=== PATIENT | female | born 1975 | race Caucasian/White ===

== ENCOUNTER 2019-10-28 05:54 | Day surgery (SDC) | payer OTHER ==
[2019-10-28] MEDS ORDERED: Midazolam 1 MG/ML 2 ML SDV IV ONE ×3 (05:55→07:07)
[2019-10-28] MEDS ORDERED: fentaNYL 100 MCG/2 ML SDV IV ONE ×3 (05:55→07:06)
[2019-10-28] MEDS ORDERED: Midazolam 1 MG/ML 2 ML SDV ONE (06:35)
[2019-10-28] MEDS ORDERED: fentaNYL 100 MCG/2 ML SDV ONE (06:36)
[2019-10-28] MEDS ORDERED: Dextrose 5%-0.45% NaCl 1,000 ML IV SCH (06:45)
--- NOTE | 2019-10-28 08:48 | OR ---
DATE: 10/28/2019 PROCEDURES: Esophagogastroduodenoscopy and multiple pinch biopsies. INSTRUMENT USED: [id number] Olympus video panendoscope. PREMEDICATIONS: No oral or topical anesthesia used. Fentanyl 100 mcg intravenous, Versed 2 mg intravenous, nasal O2 cannula. The procedure was done under pulse oximetry, BP recording, and lunchroom monitor. INDICATION: The patient with persistent abdominal pain and chronic diarrhea, unexplained and not responsive to medical measures on H2RA. Esophagogastroduodenoscopy is performed for detection of any active erosive lesions, Regalado esophagus, and/or malignancy also under consideration, H. pylori status to be determined, small bowel biopsies to be obtained for celiac disease if indicated, endoscopic hemostasis therapy if needed. PROCEDURE IN DETAIL: The scope was passed with ease. Adequate visualization of the esophagus was made from proximal to distal areas. No upper esophageal lesions identified. No distal esophageal stricture. No uphill or downhill esophageal varices. No Verenice-Marroquin tear. No evidence of erosive esophagitis by Stephens criteria. No esophageal polyp or tumor mass identified. Z-line was seen at around 39 cm distal to the oral verge, configuration consistent with grade 1 by ZAP classification. No proximal gastric varices noted. Gastric fundus examination by retroflexion showed no malignant lesions, no gastric ulcer, malignant mass, or vascular ectasia identified. Scattered gastric antral erosions were noted without bleeding from them. Duodenal bulb showed no ulcer. Visualized second part of the duodenum was unremarkable. Multiple pinch biopsies, 4 in number, were taken from different areas of the second part of the duodenum and tissues were also obtained from the duodenal bulb at 9 and 12 o'clock positions and sent for any histopathologic evidence of celiac disease. Multiple pinch biopsies were also obtained from the gastric antrum and proximal body and sent for PyloriTek test for H pylori and histopathology. No bleeding was noted from any of the visualized areas at the completion of examination. IMPRESSION: Gastric antral erosions. The patient tolerated the procedure well. [facility] /[id number]
[2019-10-28 09:25] VITALS: BP 137/89; PULSE 87
== END 2019-10-28 09:25 | disposition home or self-care (01) ==
LOC: DL.ENDO 05:54
PROVIDERS: ATTEND Internal Medicine Gastroenterology
DX: K25.9 Gastric ulcer, unspecified as acute or chronic, without hemorrhage or perforation (principal); K52.9 Noninfective gastroenteritis and colitis, unspecified; E66.09 Other obesity due to excess calories; F41.1 Generalized anxiety disorder; Z98.890 Other specified postprocedural states; Z90.49 Acquired absence of other specified parts of digestive tract; Z87.828 Personal history of other (healed) physical injury and trauma; Z86.39 Personal history of other endocrine, nutritional and metabolic disease; Z68.34 Body mass index [BMI] 34.0-34.9, adult
CPT/HCPCS: 43239; 87077; J2250; J3010; J7042

== ENCOUNTER 2019-10-29 10:35 | Emergency (ER) | payer OTHER ==
[2019-10-29 11:16] VITALS: BP 153/99; PULSE 98
--- NOTE | 2019-10-29 11:29 | EDM.PDOC ---
ED HPI GENERAL MEDICAL PROBLEM - General Chief Complaint: Chest Pain Stated Complaint: SIDE EFFECTS FROM PROCEDURE YEST. Time Seen by Provider: 10/29/19 11:15 Source of Information: Reports: Patient History Limitations: Reports: No Limitations - History of Present Illness INITIAL COMMENTS - FREE TEXT/NARRATIVE: This 44 yo female patient reports to the ED with chest pain (heaviness) that started last night. The patient reports she had an EGD done yesterday by Dr. Knight. The patient reports her heaviness started during the evening. The patient did call and talk to a nurse at the hospital and was told to take Tums. The patient reports no symptom improvement with Tums. This morning the patient called Dr. Knight's office and was advised to come to the ED for further evalu ation and management. The patient reports her pain is still present in her chest (describes it as heaviness like someone is sitting on her chest). The patient reports she was advised that the EGD demonstrated ulcers and she is supposed to start a different medication today for her ulcers. 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(s) (Tums) Anterior Chest Pain Score (Numeric/FACES): 6 - Related Data Allergies Allergy/AdvReac Type Severity Reaction Status Date / Time No Known Allergies Allergy Verified 10/29/19 11:33 Home Meds: Home Meds Venlafaxine HCl [Venlafaxine ER] 25 mg PO DAILY 09/08/13 [History] hydrOXYzine HCL [Hydroxyzine HCl] 25 mg PO Q8HR PRN 10/28/19 [History] Omeprazole 20 mg PO DAILY 10/29/19 [History] Past Medical History HEENT History: Reports: Impaired Vision Cardiovascular History: Reports: Other (See Below) Other Cardiovascular History: HX OF TACHYCARDIA Respiratory History: Reports: None Gastrointestinal History: Reports: Chronic Constipation, Chronic Diarrhea, GERD Genitourinary History: Reports: Other (See Below) Other Genitourinary History: SOME KIDNEY ISSUES 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: Neurological History: Reports: Concussion, Migraines Other Neuro History: SEVERE CONCUSSION IN ELEMENTARY SCHOOL Psychiatric History: Reports: Anxiety, Panic Attack, Other (See Below) Other Psychiatric History: NIGHT TERRORS Endocrine/Metabolic History: Reports: None Hematologic History: Reports: None Immunologic History: Reports: None Oncologic (Cancer) History: Reports: None Dermatologic History: Reports: Other (See Below) Other Dermatologic History: SKIN BIOPSIES ON BACK; SHE STATES 1 MARKER FROM CANCER - Infectious Disease History Infectious Disease History: Reports: Chicken Pox - Past Surgical History Neurological Surgical History: Social & Family History - Family History Family Medical History: Noncontributory - Caffeine Use Caffeine Use: Reports: Soda - Sexual History Sexual History: Reports: Sexually Active - Living Situation & Occupation Living situation: Reports: , with Family Occupation: Employed ED ROS GENERAL - Review of Systems Review Of Systems: Comprehensive ROS is negative, except as noted in HPI. ED EXAM, GENERAL - Physical Exam Exam: See Below Exam Limited By: No Limitations General Appearance: Alert, WD/WN, Moderate Distress Eye Exam: Bilateral Eye: EOMI, Normal Inspection, PERRL Ears: Normal External Exam, Normal Canal, Hearing Grossly Normal, Normal TMs Nose: Normal Inspection, Normal Mucosa, No Blood Throat/Mouth: Normal Inspection, Normal Lips, Normal Teeth, Normal Gums, Normal Oropharynx, Normal Voice, No Airway Compromise Head: Atraumatic, Normocephalic Neck: Normal Inspection Respiratory/Chest: No Respiratory Distress, Lungs Clear, Normal Breath Sounds, No Accessory Muscle Use, Chest Non-Tender Cardiovascular: Normal Peripheral Pulses, Regular Rate, Rhythm, No Edema, No Gallop, No JVD, No Murmur, No Rub GI/Abdominal: Tender (diffuse) (Female) Exam: Deferred Rectal (Female) Exam: Deferred Back Exam: Normal Inspection, Full Range of Motion, NT Extremities: Normal Inspection, Normal Range of Motion, Non-Tender, Normal Capillary Refill, No Pedal Edema Neurological: Alert, Oriented, CN II-XII Intact, Normal Cognition, Normal Gait, Normal Reflexes, No Motor/Sensory Deficits Psychiatric: Normal Affect, Normal Mood Skin Exam: Warm, Dry, Intact, Normal Color, No Rash Lymphatic: No Adenopathy Course - Vital Signs Last Recorded V/S: Last Vital Signs Temp 36.3 C 10/29/19 10:58 Pulse 98 10/29/19 10:58 Resp 16 10/29/19 10:58 BP 153/99 H 10/29/19 10:58 Pulse Ox 98 10/29/19 10:58 - Orders/Labs/Meds Orders: Active Orders 24 hr Category Date Time Status EKG Documentation Completion [RC] STAT Care 10/29/19 11:17 Ordered Labs: Laboratory Tests 10/29/19 10/29/19 Range/Units 11:03 11:03 WBC 6.6 (5.0-10.0) 10^3/uL RBC 4.51 (4.2-5.4) 10^6/uL Hgb 14.8 D (12.0-16.0) g/dL Hct 42.9 (37.0-47.0) % MCV 95.1 D (80-100) fL MCH 32.8 (27.0-34.0) pg MCHC 34.5 (33.0-35.0) g/dL Plt Count 363 (150-450) 10^3/uL Neut % (Auto) 61.6 (42.2-75.2) % Lymph % (Auto) 26.0 (20.5-50.1) % [place] % (Auto) 9.4 H (2-8) % Eos % (Auto) 2.4 (1.0-3.0) % Baso % (Auto) 0.6 (0.0-1.0) % Sodium 140 (136-145) mmol/L Potassium 3.8 (3.5-5.1) mmol/L Chloride 103 (98-107) mmol/L Carbon Dioxide 27 (21-32) mmol/L Anion Gap 13.8 H (7-13) mEq/L BUN 7 (7-18) mg/dL Creatinine 0.87 (0.55-1.02) mg/dL Est Cr Clr Drug Dosing 69.68 mL/min Estimated GFR (MDRD) > 60 BUN/Creatinine Ratio 8.0 (No establ ref range) Glucose 106 H (74-99) mg/dL Calcium 9.0 (8.5-10.1) mg/dL Total Bilirubin 0.6 (0.2-1.0) mg/dL AST 46 H (15-37) U/L ALT 52 (14-59) U/L Alkaline Phosphatase 92 (46-116) U/L Troponin I < 0.017 (0.000-0.056) ng/mL Total Protein 7.2 (6.4-8.2) g/dL Albumin 3.5 (3.4-5.0) g/dL Globulin 3.7 Albumin/Globulin Ratio 0.9 Meds: Medications Discontinued Medications Generic Name Dose Route Start Last Admin Trade Name Opal PRN Reason Stop Dose Admin Al Hydroxide/Mg Hydroxide 30 ml 10/29/19 11:58 10/29/19 12:08 Gi Cocktail PO 10/29/19 11:59 30 ml ONETIME ONE Administration Departure - Departure Time of Disposition: 12:34 Disposition: Home, Self-Care 01 Condition: Fair Clinical Impression: GERD (gastroesophageal reflux disease) Qualifiers: Esophagitis presence: with esophagitis Qualified Code(s): K21.0 - Gastro- esophageal reflux disease with esophagitis Instructions: Nonspecific Chest Pain, Adult, [id number], Gastroesophageal Reflux Disease, Adult, [id number] Forms: ED Department Discharge Care Plan Goals: The patient was advised of the examination, lab, x-ray and EKG results during the visit. The patient was given a GI Cocktail while in the ED. The patient was encouraged to take her Omeprazole as directed. If the patient has any additional symptoms or concerns, the patient should follow-up with her primary care facility or return to the emergency department. Sepsis Event Note (ED) - Evaluation Sepsis Screening Result: No Definite Risk - Focused Exam Vital Signs: Vital Signs Temp Pulse Resp BP Pulse Ox 10/29/19 10:58 36.3 C 98 16 153/99 H 98 - My Orders Last 24 Hours: My Active Orders 10/29/19 11:17 EKG Documentation Completion [RC] STAT - Assessment/Plan Last 24 Hours: My Active Orders 10/29/19 11:17 EKG Documentation Completion [RC] STAT
[2019-10-29 11:34] LABS: ANION GAP 13.8 mEq/L (7-13); CHLORIDE,CL 103 mmol/L (98-107); SODIUM,NA 140 mmol/L (136-145)
--- NOTE | 2019-10-29 11:56 | CR ---
EXAMINATION: Chest 1V Frontal SEX: Female AGE: 44 years CLINICAL HISTORY: 44-year-old female experiencing chest pain. INTERPRETATION: Negative exam. (Reasonable inspiratory effort obese female) 1. Normal cardiac silhouette and pulmonary vascularity. Left-sided aortic arch. 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 No pulmonary vascular congestion, cephalization of flow, alveolar edema or dependent pleural effusion. 3. No lung mass, hilar lymphadenopathy or focal lobar pneumonia. 4. No atelectasis/collapse. Gary thorax unremarkable (AP film) 5. No pneumothorax or pneumomediastinum. Normal midline tracheal bronchial airway. No free subdiaphragmatic air.
[2019-10-29] MEDS ORDERED: GI Cocktail Oral Solution 30 ML PO ONE (11:58)
== END 2019-10-29 12:40 | disposition home or self-care (01) ==
LOC: DL.ED 10:35
DX: K21.0 Gastro-esophageal reflux disease with esophagitis (principal); F41.0 Panic disorder [episodic paroxysmal anxiety]; G43.909 Migraine, unspecified, not intractable, without status migrainosus; Z79.899 Other long term (current) drug therapy
CPT/HCPCS: 36415; 71045; 80053; 84484; 85025; 93005; 99285; A9270

== ENCOUNTER 2020-01-26 18:31 | Emergency (ER) | payer OTHER ==
[2020-01-26] MEDS ORDERED: Promethazine 25 MG Tab PO ONE (18:32)
[2020-01-26] MEDS ORDERED: Acetaminophen/HYDROcodone 325-10 MG Tab PO ONE ×2 (18:32→20:39)
[2020-01-26 19:27] VITALS: BP 138/89; PULSE 105
--- NOTE | 2020-01-26 21:56 | CR ---
PROCEDURE INFORMATION: Exam: XR Chest, 1 View Exam date and time: 01/26/2020 9:44 PM Age: 44 years old Clinical indication: Other: Positive for covid; Additional info: SOB TECHNIQUE: Imaging protocol: XR of the chest Views: 1 view. COMPARISON: CR Chest 1V Frontal 10/29/2019 11:29 AM FINDINGS: Lungs: Unremarkable. No consolidation. Pleural space: Unremarkable. No pleural effusion. No pneumothorax. Heart/Mediastinum: Unremarkable. No cardiomegaly. Bones/joints: Unremarkable. IMPRESSION: No acute findings.
[2020-01-26 22:02] LABS: ANION GAP 12.2 mEq/L (7-13); CHLORIDE,CL 102 mmol/L (98-107); SODIUM,NA 139 mmol/L (136-145)
[2020-01-26] MEDS ORDERED: Acetaminophen/HYDROcodone 325-10 MG Tab ONE (22:20)
[2020-01-26] MEDS ORDERED: Promethazine 25 MG Tab ONE (22:20)
--- NOTE | 2020-01-26 22:23 | EDM.PDOC ---
ED HPI GENERAL MEDICAL PROBLEM - General Chief Complaint: Headache Stated Complaint: COVID SYMTOMS, TEMP 98.6* Time Seen by Provider: 01/26/20 19:25 Source of Information: Reports: Patient History Limitations: Reports: No Limitations - History of Present Illness INITIAL COMMENTS - FREE TEXT/NARRATIVE: ED with c/o headache fever, congestion loss of taste poor appetite, no nausea or vomiting. No diarrhea. Generalized aching. Fever earlier today 100.2 came down with Tylenol No known exposure. Headache Pain Score (Numeric/FACES): 8 - Related Data Allergies Allergy/AdvReac Type Severity Reaction Status Date / Time No Known Allergies Allergy Verified 01/26/20 19:42 Home Meds: Home Meds Omeprazole 20 mg PO DAILY 10/29/19 [History] Escitalopram Oxalate [Lexapro] 10 mg PO DAILY 01/26/20 [History] Past Medical History HEENT History: Reports: Impaired Vision Cardiovascular History: Reports: Other (See Below) Other Cardiovascular History: HX OF TACHYCARDIA Respiratory History: Reports: Pneumonia, Recurrent Gastrointestinal History: Reports: Chronic Constipation, Chronic Diarrhea, GERD, Other (See Below) Other Gastrointestinal History: ulcer Genitourinary History: Reports: Other (See Below) Other Genitourinary History: SOME KIDNEY ISSUES 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: Neurological History: Reports: Concussion, Migraines Other Neuro History: SEVERE CONCUSSION IN ELEMENTARY SCHOOL Psychiatric History: Reports: Anxiety, Panic Attack, Other (See Below) Other Psychiatric History: NIGHT TERRORS Endocrine/Metabolic History: Reports: None Hematologic History: Reports: None Immunologic History: Reports: None Oncologic (Cancer) History: Reports: None Dermatologic History: Reports: Other (See Below) Other Dermatologic History: SKIN BIOPSIES ON BACK; SHE STATES 1 MARKER FROM CANCER - Infectious Disease History Infectious Disease History: Reports: Chicken Pox - Past Surgical History GI Surgical History: Reports: Cholecystectomy Musculoskeletal Surgical History: Reports: Shoulder Surgery Other Musculoskeletal Surgeries/Procedures:: SPONDYTHOLITHESIS (FROM ) Social & Family History - Family History Family Medical History: Noncontributory - Tobacco Use Smoking Status *Q: Never Smoker Second Hand Smoke Exposure: No - Caffeine Use Caffeine Use: Reports: None Caffeine Use Comment: state she has now stopped caffiene after EGD yesterday - Recreational Drug Use Recreational Drug Use: No - Sexual History Sexual History: Reports: Sexually Active - Living Situation & Occupation Living situation: Reports: , with Family Occupation: Employed ED ROS GENERAL - Review of Systems Review Of Systems: Comprehensive ROS is negative, except as noted in HPI. - Physical Exam Exam: See Below Exam Limited By: No Limitations General Appearance: Alert, Mild Distress Eye Exam: Bilateral Eye: EOMI Ears: Normal External Exam, Normal TMs Nose: Normal Inspection Throat/Mouth: Normal Inspection Head Exam: Atraumatic, Normocephalic Neck: Normal Inspection Respiratory/Chest: No Respiratory Distress, Lungs Clear, Normal Breath Sounds Cardiovascular: Normal Peripheral Pulses, Regular Rate, Rhythm GI/Abdominal: Normal Bowel Sounds, Soft, Non-Tender Neuro Exam (Abbreviated): Alert, Oriented, Normal Cognition Back Exam: Normal Inspection Extremities: Normal Inspection Psychiatric: Anxious Skin Exam: Warm, Dry, Intact, Normal Color Course - Vital Signs Last Recorded V/S: Last Vital Signs Temp 100.7 F H 01/26/20 20:59 Pulse 105 H 01/26/20 19:25 Resp 18 01/26/20 19:25 BP 138/89 01/26/20 19:25 Pulse Ox 98 01/26/20 19:25 - Orders/Labs/Meds Orders: Active Orders 24 hr Category Date Time Status CULTURE STREP A CONFIRMATION [RM] Stat Lab 01/26/20 20:24 Results STREP SCRN A RAPID W CULT CONF [RM] Stat Lab 01/26/20 20:24 Results Isolation [COMM] Routine Oth 01/26/20 19:14 Active Labs: Laboratory Tests 01/26/20 01/26/20 01/26/20 Range/Units 19:10 21:31 21:31 WBC 4.7 L (5.0-10.0) 10^3/uL RBC 4.02 L (4.2-5.4) 10^6/uL Hgb 13.1 D (12.0-16.0) g/dL Hct 38.5 (37.0-47.0) % MCV 95.8 (80-100) fL MCH 32.6 (27.0-34.0) pg MCHC 34.0 (33.0-35.0) g/dL Plt Count 249 D (150-450) 10^3/uL Neut % (Auto) 72.4 (42.2-75.2) % Lymph % (Auto) 18.4 L (20.5-50.1) % [place] % (Auto) 8.6 H (2-8) % Eos % (Auto) 0.2 L (1.0-3.0) % Baso % (Auto) 0.4 (0.0-1.0) % Sodium 139 (136-145) mmol/L Potassium 3.2 L (3.5-5.1) mmol/L Chloride 102 (98-107) mmol/L Carbon Dioxide 28 (21-32) mmol/L Anion Gap 12.2 (7-13) mEq/L BUN 7 (7-18) mg/dL Creatinine 0.99 (0.55-1.02) mg/dL Est Cr Clr Drug Dosing 61.24 mL/min Estimated GFR (MDRD) > 60 BUN/Creatinine Ratio 7.1 (No establ ref range) Glucose 95 (74-99) mg/dL Calcium 8.5 (8.5-10.1) mg/dL Total Bilirubin 0.3 (0.2-1.0) mg/dL AST 57 H (15-37) U/L ALT 65 H (14-59) U/L Alkaline Phosphatase 84 (46-116) U/L C-Reactive Protein 3.3 H (0.0-0.9) mg/dL Total Protein 6.7 (6.4-8.2) g/dL Albumin 3.2 L (3.4-5.0) g/dL Globulin 3.5 Albumin/Globulin Ratio 0.91 SARS CoV-2 RNA Rapid ARY Positive H (NEGATIVE) Meds: Medications Discontinued Medications Generic Name Dose Route Start Last Admin Trade Name Opal PRN Reason Stop Dose Admin Hydrocodone Bitart/Acetaminophen 1 tab 01/26/20 20:39 01/26/20 20:58 [place] 325-10 Mg PO 01/26/20 20:40 1 tab ONETIME ONE Administration Hydrocodone Bitart/Acetaminophen Confirm 01/26/20 22:20 [place] 325-10 Mg Administered 01/26/20 22:21 Dose 2 tab .ROUTE .STK-MED ONE Promethazine HCl Confirm 01/26/20 22:20 Phenergan Administered 01/26/20 22:21 Dose 50 mg .ROUTE .STK-MED ONE Departure - Departure Time of Disposition: 22:21 Disposition: Home, Self-Care 01 Condition: Good Clinical Impression: COVID-19 - Discharge Information *PRESCRIPTION DRUG MONITORING PROGRAM REVIEWED*: No *COPY OF PRESCRIPTION DRUG MONITORING REPORT IN PATIENT CARA: No Instructions: COVID-19 Frequently Asked Questions, COVID-19: How to Protect Yourself and Others - CDC, Prevent the Spread of COVID-19 if You Are Sick - [facility] Referrals: Joelle Otoole, SUPERVISOR FABRICATION DEPARTMENT [Primary Care Provider] - Forms: ED Department Discharge Additional Instructions: increase fluids over counter ough and cold medication per label instructions to manage sx of congestion and cough tylenol 650mg every 4 hours as needed for fever, not to exceed 3000mg per 24 hours phenergan 25mg every 6 hours as needed for nausea/ vomiting hydrocodone 10/325 one every 6 hours as needed for severe pain phone follow up with primary care this week urgent follow up if uncontrolled vomiting, not keeping fluids in or severe difficulty breathing Sepsis Event Note (ED) - Evaluation Sepsis Screening Result: No Definite Risk - Focused Exam Vital Signs: Vital Signs Temp Pulse Resp BP Pulse Ox 01/26/20 20:59 100.7 F H 01/26/20 19:25 99.3 F 105 H 18 138/89 98 - My Orders Last 24 Hours: My Active Orders 01/26/20 19:14 Isolation [COMM] Routine 01/26/20 20:24 CULTURE STREP A CONFIRMATION [RM] Stat STREP SCRN A RAPID W CULT CONF [RM] Stat - Assessment/Plan Last 24 Hours: My Active Orders 01/26/20 19:14 Isolation [COMM] Routine 01/26/20 20:24 CULTURE STREP A CONFIRMATION [RM] Stat STREP SCRN A RAPID W CULT CONF [RM] Stat
== END 2020-01-26 22:31 | disposition home or self-care (01) ==
LOC: DL.ED 18:31
DX: U07.1 COVID-19 (principal); K21.9 Gastro-esophageal reflux disease without esophagitis; F41.9 Anxiety disorder, unspecified; Z79.899 Other long term (current) drug therapy
CPT/HCPCS: 36415; 71045; 80053; 85025; 86140; 87081; 87430; 87635; 87804; 99284; A9270; U0002

== ENCOUNTER 2020-01-30 11:38 | Emergency (ER) | payer OTHER ==
[2020-01-30 11:49] VITALS: BP 112/62; PULSE 110
[2020-01-30 12:44] LABS: ANION GAP 12.4 mEq/L (7-13)
[2020-01-30] MEDS ORDERED: Dexamethasone 4 MG/ML SDV IVPUSH ONE (12:57)
[2020-01-30] MEDS ORDERED: Sodium Chloride 0.9% 500 ML IV SCH (13:00)
--- NOTE | 2020-01-30 14:10 | EDM.PDOC ---
ED HPI GENERAL MEDICAL PROBLEM - General Chief Complaint: Respiratory Problem Stated Complaint: INCOMING Time Seen by Provider: 01/30/20 13:40 Source of Information: Reports: Patient, RN, RN Notes Reviewed History Limitations: Reports: No Limitations - History of Present Illness INITIAL COMMENTS - FREE TEXT/NARRATIVE: Patient presents to the ED via personal vehicle with complaints of shortness of breath. Per patient report, she tested positive for COVID this past Monday01/26/20; her symptoms began on 01/25/20. She does attest to chest pressure and palpitations. She denies nausea, but relates she has had several bouts of dry heaving. The patient attests to several episodes of diarrhea, about 20, in the last 24 hours. Generalized Pain Score (Numeric/FACES): 9 - Related Data Allergies Allergy/AdvReac Type Severity Reaction Status Date / Time No Known Allergies Allergy Verified 01/26/20 19:42 Home Meds: Home Meds Omeprazole 20 mg PO DAILY 10/29/19 [History] Escitalopram Oxalate [Lexapro] 10 mg PO DAILY 01/26/20 [History] Past Medical History HEENT History: Reports: Impaired Vision Cardiovascular History: Reports: Other (See Below) Other Cardiovascular History: HX OF TACHYCARDIA Respiratory History: Reports: Pneumonia, Recurrent Gastrointestinal History: Reports: Chronic Constipation, Chronic Diarrhea, GERD, Other (See Below) Other Gastrointestinal History: ulcer Genitourinary History: Reports: Other (See Below) Other Genitourinary History: SOME KIDNEY ISSUES 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 History: Reports: Musculoskeletal History: Reports: None Neurological History: Reports: Concussion, Migraines Other Neuro History: SEVERE CONCUSSION IN ELEMENTARY SCHOOL Psychiatric History: Reports: Anxiety, Panic Attack, Other (See Below) Other Psychiatric History: NIGHT TERRORS Endocrine/Metabolic History: Reports: None Hematologic History: Reports: None Immunologic History: Reports: None Oncologic (Cancer) History: Reports: None Dermatologic History: Reports: Other (See Below) Other Dermatologic History: SKIN BIOPSIES ON BACK; SHE STATES 1 MARKER FROM CANCER - Infectious Disease History Infectious Disease History: Reports: None - Past Surgical History Head Surgeries/Procedures: Reports: None GI Surgical History: Reports: Cholecystectomy Musculoskeletal Surgical History: Reports: Shoulder Surgery Other Musculoskeletal Surgeries/Procedures:: SPONDYTHOLITHESIS (FROM ) Social & Family History - Family History Family Medical History: Noncontributory - Tobacco Use Tobacco Use Status *Q: Never Tobacco User Second Hand Smoke Exposure: No - Caffeine Use Caffeine Use: Reports: None Caffeine Use Comment: state she has now stopped caffiene after EGD yesterday - Recreational Drug Use Recreational Drug Use: No - Sexual History Sexual History: Reports: Sexually Active - Living Situation & Occupation Living situation: Reports: , with Family Occupation: Employed ED ROS GENERAL - Review of Systems Review Of Systems: Comprehensive ROS is negative, except as noted in HPI. ED EXAM, GENERAL - Physical Exam Exam: See Below Exam Limited By: No Limitations General Appearance: Alert, WD/WN, No Apparent Distress Ears: Normal External Exam, Normal Canal, Hearing Grossly Normal, Normal TMs Nose: Clear Rhinorrhea Throat/Mouth: Normal Inspection, Normal Voice, No Airway Compromise Head: Atraumatic, Normocephalic Neck: Normal Inspection, Supple, Non-Tender, Full Range of Motion. No: Lymphadenopathy (L), Lymphadenopathy (R) Respiratory/Chest: No Respiratory Distress, Lungs Clear, Chest Non-Tender Cardiovascular: Normal Peripheral Pulses, Regular Rate, Rhythm, No Edema, No Gallop, No Murmur, No Rub Peripheral Pulses: 2+: Radial (L), Radial (R) GI/Abdominal: Normal Bowel Sounds, Soft, Non-Tender, No Distention, No Mass (Female) Exam: Deferred Rectal (Female) Exam: Deferred Back Exam: Normal Inspection, Full Range of Motion. No: CVA Tenderness (L), CVA Tenderness (R) Extremities: Normal Inspection, Normal Range of Motion, Non-Tender, No Pedal Edema, Normal Capillary Refill Neurological: Alert, Oriented, CN II-XII Intact Skin Exam: Warm, Dry, Intact. No: Ecchymosis, Erythema, Pallor, Petechiae, Rash Course - Vital Signs Last Recorded V/S: Last Vital Signs Temp 98.5 F 01/30/20 11:42 Pulse 110 H 01/30/20 11:42 Resp 22 H 01/30/20 11:42 BP 112/62 01/30/20 11:42 Pulse Ox 97 01/30/20 11:42 - Orders/Labs/Meds Orders: Active Orders 24 hr Category Date Time Status Sodium Chloride 0.9% [Normal Saline] 500 ml Med 01/30/20 13:00 Active IV .BOLUS Medication Orders Sodium Chloride (Normal Saline) 500 mls @ 500 mls/hr IV .BOLUS MEETA Last Admin: 01/30/20 13:03 Dose: 500 mls/hr Documented by: AYO Labs: Laboratory Tests 01/30/20 01/30/20 01/30/20 Range/Units 12:08 12:08 12:08 WBC 7.1 (5.0-10.0) 10^3/uL RBC 4.69 (4.2-5.4) 10^6/uL Hgb 15.3 D (12.0-16.0) g/dL Hct 44.8 (37.0-47.0) % MCV 95.5 (80-100) fL MCH 32.6 (27.0-34.0) pg MCHC 34.2 (33.0-35.0) g/dL Plt Count 237 (150-450) 10^3/uL Neut % (Auto) 71.5 (42.2-75.2) % Lymph % (Auto) 20.9 (20.5-50.1) % [place] % (Auto) 7.4 (2-8) % Eos % (Auto) 0.1 L (1.0-3.0) % Baso % (Auto) 0.1 (0.0-1.0) % Sodium 139 (136-145) mmol/L Potassium 3.4 L (3.5-5.1) mmol/L Chloride 102 (98-107) mmol/L Carbon Dioxide 28 (21-32) mmol/L Anion Gap 12.4 (7-13) mEq/L BUN 7 (7-18) mg/dL Creatinine 1.15 H (0.55-1.02) mg/dL Est Cr Clr Drug Dosing 52.72 mL/min Estimated GFR (MDRD) 52 BUN/Creatinine Ratio 6.1 (No establ ref range) Glucose 114 H (74-99) mg/dL Lactic Acid 1.8 (0.4-2.0) mmol/L Calcium 8.5 (8.5-10.1) mg/dL Total Bilirubin 0.5 (0.2-1.0) mg/dL AST 32 (15-37) U/L ALT 36 (14-59) U/L Alkaline Phosphatase 81 (46-116) U/L Total Protein 7.2 (6.4-8.2) g/dL Albumin 3.1 L (3.4-5.0) g/dL Globulin 4.1 Albumin/Globulin Ratio 0.76 Urine Color (YELLOW) Urine Appearance (CLEAR) Urine pH (5.0-9.0) Ur Specific Walls (1.005-1.030) Urine Protein (NEGATIVE) Urine Glucose (UA) (NEGATIVE) Urine Ketones (NEGATIVE) Urine Occult Blood (NEGATIVE) Urine Nitrite (NEGATIVE) Urine Bilirubin (NEGATIVE) Urine Urobilinogen (0.2-1.0) mg/dL Ur Leukocyte Esterase (NEGATIVE) U Hyaline Cast (Auto) Urine RBC /HPF Urine WBC (0-5/HPF) /HPF Ur Epithelial Cells (NOT SEEN) /HPF Urine Bacteria (0-FEW/HPF) /HPF Urine Mucus (NOT SEEN) /LPF 01/30/20 Range/Units 12:47 WBC (5.0-10.0) 10^3/uL RBC (4.2-5.4) 10^6/uL Hgb (12.0-16.0) g/dL Hct (37.0-47.0) % MCV (80-100) fL MCH (27.0-34.0) pg MCHC (33.0-35.0) g/dL Plt Count (150-450) 10^3/uL Neut % (Auto) (42.2-75.2) % Lymph % (Auto) (20.5-50.1) % [place] % (Auto) (2-8) % Eos % (Auto) (1.0-3.0) % Baso % (Auto) (0.0-1.0) % Sodium (136-145) mmol/L Potassium (3.5-5.1) mmol/L Chloride (98-107) mmol/L Carbon Dioxide (21-32) mmol/L Anion Gap (7-13) mEq/L BUN (7-18) mg/dL Creatinine (0.55-1.02) mg/dL Est Cr Clr Drug Dosing mL/min Estimated GFR (MDRD) BUN/Creatinine Ratio (No establ ref range) Glucose (74-99) mg/dL Lactic Acid (0.4-2.0) mmol/L Calcium (8.5-10.1) mg/dL Total Bilirubin (0.2-1.0) mg/dL AST (15-37) U/L ALT (14-59) U/L Alkaline Phosphatase (46-116) U/L Total Protein (6.4-8.2) g/dL Albumin (3.4-5.0) g/dL Globulin Albumin/Globulin Ratio Urine Color Yellow (YELLOW) Urine Appearance Clear (CLEAR) Urine pH 6.0 (5.0-9.0) Ur Specific [place] >= 1.030 (1.005-1.030) Urine Protein 30 H (NEGATIVE) Urine Glucose (UA) Negative (NEGATIVE) Urine Ketones Trace H (NEGATIVE) Urine Occult Blood Trace-intact H (NEGATIVE) Urine Nitrite Negative (NEGATIVE) Urine Bilirubin Small H (NEGATIVE) Urine Urobilinogen 1.0 (0.2-1.0) mg/dL Ur Leukocyte Esterase Negative (NEGATIVE) U Hyaline Cast (Auto) Few Urine RBC 0-5 /HPF Urine WBC 5-10 H (0-5/HPF) /HPF Ur Epithelial Cells Moderate H (NOT SEEN) /HPF Urine Bacteria Moderate H (0-FEW/HPF) /HPF Urine Mucus Moderate H (NOT SEEN) /LPF Meds: Medications Generic Name Dose Route Start Last Admin Trade Name Freq PRN Reason Stop Dose Admin Sodium Chloride 500 mls @ 500 mls/hr 01/30/20 13:00 01/30/20 13:03 Normal Saline IV 500 mls/hr .BOLUS MEETA Administration Discontinued Medications Generic Name Dose Route Start Last Admin Trade Name Freq PRN Reason Stop Dose Admin Dexamethasone 6 mg 01/30/20 12:57 01/30/20 13:03 Dexamethasone IVPUSH 01/30/20 12:58 6 mg ONETIME ONE Administration - Re-Assessments/Exams Free Text/Narrative Re-Assessment/Exam: 01/30/20 13:00 CBC, CMP, Lactic, UA 01/30/20 13:30 NS 500cc x1, Dexamethazone 6 mg IVP 01/30/20 14:45 Will send home. Departure - Departure Time of Disposition: 14:47 Disposition: Home, Self-Care 01 Clinical Impression: Gastroenteritis due to COVID-19 virus, Shortness of breath with exposure to COVID-19 virus - Discharge Information *PRESCRIPTION DRUG MONITORING PROGRAM REVIEWED*: Not Applicable *COPY OF PRESCRIPTION DRUG MONITORING REPORT IN PATIENT CARA: Not Applicable Instructions: COVID-19 Frequently Asked Questions, COVID-19: How to Protect You rself and Others - CDC Forms: ED Department Discharge Additional Instructions: Continue to quarantine, per State Health Department recommendations. Continue to drink plenty of fluids to stay hydrated. Eat small, frequent meals for nausea. Take Pepto-Bismol for loose stools. Sepsis Event Note (ED) - Evaluation Sepsis Screening Result: No Definite Risk - Focused Exam Vital Signs: Vital Signs Temp Pulse Resp BP Pulse Ox 01/30/20 11:42 98.5 F 110 H 22 H 112/62 97 - My Orders Last 24 Hours: My Active Orders 01/30/20 13:00 Sodium Chloride 0.9% [Normal Saline] 500 ml IV .BOLUS - Assessment/Plan Last 24 Hours: My Active Orders 01/30/20 13:00 Sodium Chloride 0.9% [Normal Saline] 500 ml IV .BOLUS
== END 2020-01-30 15:27 | disposition home or self-care (01) ==
LOC: DL.ED 11:38
DX: U07.1 COVID-19 (principal); A08.39 Other viral enteritis; K21.9 Gastro-esophageal reflux disease without esophagitis; F41.9 Anxiety disorder, unspecified; Z79.899 Other long term (current) drug therapy
CPT/HCPCS: 36415; 80053; 81001; 83605; 85025; 96374; 99284; J1100; J7040